=== PATIENT | female | born 1995 | race African-American/Black ===

== ENCOUNTER 2016-08-26 12:05 | Emergency (ER) | payer SELFPAY ==
[~2016-08-26] VITALS: Ht 165.1 cm; Wt 50.0 kg
[2016-08-26 12:07] VITALS: BP 101/60
== END 2016-08-26 16:44 | disposition left against medical advice (07) ==
LOC: ER 13:35
DX: R42 Dizziness and giddiness (principal); Z53.21 Procedure and treatment not carried out due to patient leaving prior to being seen by health care provider

== ENCOUNTER 2016-08-27 03:54 | Emergency (ER) | payer SELFPAY ==
[~2016-08-27] VITALS: Ht 180.3 cm; Wt 53.0 kg
[2016-08-27 06:53] VITALS: BP 105/54
[2016-08-27] MEDS ORDERED: TRAMADOL 50MG TABLET PO ONE (07:00)
== END 2016-08-27 07:03 | disposition home or self-care (01) ==
LOC: ER 04:02
DX: L03.116 Cellulitis of left lower limb (principal)
CPT/HCPCS: 99283